=== PATIENT | male | born 1950 | race Caucasian/White ===

== ENCOUNTER 2018-02-23 13:12 | Emergency (ER) | payer OTHER ==
[~2018-02-23] VITALS: Ht 167.6 cm; Wt 45.4 kg
[~2018-02-23 13:12] MED LIST: ACET325 PO; ASPI81CH PO; ATOR40TA PO; Antacid Maximu355 ML PO; BISA10S PR; CEPH500 PO; CLOTRIMAZOLE AF1510 TOP; Enema133 M1 PR; Hair, Skin & N1 EACH PO; LEVE500 PO; LOPE2C PO; Milk Of Ma400 MG/5 M PO; OLAN10 PO; Omeprazole20 M1 PO; PROC25S PR; RISAMINE OINTM113 GM TOP
[2018-02-23] MEDS ORDERED: RISP4 PO (13:38)
[2018-02-23] MEDS ORDERED: CITA20 PO (13:38)
== END 2018-02-23 16:42 | disposition home or self-care (01) ==
LOC: ER 13:12
DX: R09.89 Other specified symptoms and signs involving the circulatory and respiratory systems (principal); Z79.82 Long term (current) use of aspirin; Z79.899 Other long term (current) drug therapy
CPT/HCPCS: 71045; 99284-25

== ENCOUNTER 2018-05-24 15:24 | Inpatient (IN) | payer OTHER ==
[~2018-05-24] VITALS: Ht 165.1 cm; Wt 74.0 kg
[~2018-05-24 15:24] MED LIST changes: -ACET325 PO; +CITA20 PO; +ONDA4ODT MM; +PAIN & FEVER500 MG PO; +RISP2 PO; +Seroquel50 MG PO
[2018-05-24] MEDS ORDERED: MELO7.5 PO (15:41)
[2018-05-24] MEDS ORDERED: LEVE500 PO (15:44)
[2018-05-24 16:18] LABS: BASOPHILS ABSOLUTE AUTO 0.03 K/mm3 (0.00-0.23); BASOPHILS PERCENT AUTO 0 % (0-2); EOSINOPHILS ABSOLUTE AUTO 0.09 K/mm3 (0.00-0.68); EOSINOPHILS PERCENT AUTO 1 % (0-6); Hematocrit 32.5 % (37.0-53.0); Hemoglobin 10.6 g/dL (13.5-17.5); IMMATURE GRAN ABSOLUTE AUTO 0.04 K/mm3 (0.00-0.10); IMMATURE GRAN PERCENT AUTO 1 % (0-1); LYMPHOCYTES ABSOLUTE AUTO 0.64 K/mm3 (0.84-5.20); LYMPHOCYTES PERCENT AUTO 8 % (21-46); MONOCYTES ABSOLUTE AUTO 0.29 K/mm3 (0.16-1.47); MONOCYTES PERCENT AUTO 4 % (4-13); Mean Corpuscular HGB 30.7 pg (26.0-34.0); Mean Corpuscular HGB Conc 32.6 g/dL (31.5-36.5); Mean Corpuscular Volume 94 fL (80-100); Mean Platelet Volume 9.3 fL (9.1-12.4); NEUTROPHILS ABSOLUTE AUTO 6.83 K/mm3 (1.96-9.15); NEUTROPHILS PERCENT AUTO 86 % (41-73); Platelet Count 230 K/mm3 (150-400); RDW Coefficient Variation 13.2 % (11.7-14.2); RDW Standard Deviation 45.2 fL (35.1-46.3); Red Blood Cell Count 3.45 M/mm3 (4.30-5.90); White Blood Cell Count 7.92 K/mm3 (4.00-11.30)
[2018-05-24 16:38] LABS: Alanine Aminotransfer (ALT/SGP 44 U/L (12-78); Albumin, Blood 3.3 g/dL (3.4-5.0); Albumin/Globulin Ratio 0.8 (0.8-1.8); Alk Phos 76 U/L (50-136); Anion Gap 8 mmol/L (6-16); Aspartate Aminotrans (AST/SGOT 39 U/L (12-37); Bilirubin, Total 0.5 mg/dL (0.1-1.0); Blood Urea Nitrogen 25 mg/dL (8-24); Bun/Creatinine Ratio 36.5 (12.0-20.0); CO2, Blood 26 mmol/L (21-32); Calcium, Blood 8.4 mg/dL (8.5-10.1); Chloride, Blood 106 mmol/L (98-108); Creatinine, Blood 0.69 mg/dL (0.60-1.20); Globulin, Blood 3.9 g/dL (2.2-4.0); Glomerular Filtration Rate >60 (60-); Glucose, Blood 89 mg/dL (70-99); Potassium, Blood 3.6 mmol/L (3.5-5.5); Sodium, Blood 140 mmol/L (136-145); Total Protein, Blood 7.2 g/dL (6.4-8.2)
[2018-05-24 16:54] LABS: Source, Urine Catheter
[2018-05-24 17:02] LABS: Bilirubin, Urine Neg (Neg); Blood, Urine 5+ (Neg); Glucose Qualitative, Urine Neg (Neg); Ketones, Urine Neg (Neg); Leukocyte Esterase, Urine 1+ (Neg); Nitrite, Urine Pos (Neg); Protein, Urine 1+ (Neg); Specific Gravity, Urine 1.015 (1.003-1.022); Urobilinogen, Urine NORM (Normal)
[2018-05-24 17:14] LABS: Appearance, Urine Cloudy (Clear); Color, Urine Yellow (P-Yellow)
[2018-05-24 17:16] LABS: Bacteria Many /hpf; Red Blood Cells, Urine 25-50 /hpf (0-2)
[2018-05-24 17:17] LABS: Squamous Epithelial Cells Not Seen /hpf (Few)
[2018-05-24 18:25] LABS: Influenza A Negative (NEGATIVE); Influenza B Negative (NEGATIVE)
[2018-05-25 04:33] LABS: BASOPHILS ABSOLUTE AUTO 0.03 K/mm3 (0.00-0.23); BASOPHILS PERCENT AUTO 0 % (0-2); EOSINOPHILS PERCENT AUTO 0 % (0-6); Hematocrit 29.3 % (37.0-53.0); Hemoglobin 9.6 g/dL (13.5-17.5); IMMATURE GRAN ABSOLUTE AUTO 0.06 K/mm3 (0.00-0.10); IMMATURE GRAN PERCENT AUTO 1 % (0-1); LYMPHOCYTES ABSOLUTE AUTO 1.22 K/mm3 (0.84-5.20); LYMPHOCYTES PERCENT AUTO 12 % (21-46); MONOCYTES ABSOLUTE AUTO 0.92 K/mm3 (0.16-1.47); MONOCYTES PERCENT AUTO 9 % (4-13); Mean Corpuscular HGB Conc 32.8 g/dL (31.5-36.5); Mean Corpuscular Volume 95 fL (80-100); NEUTROPHILS ABSOLUTE AUTO 7.68 K/mm3 (1.96-9.15); NEUTROPHILS PERCENT AUTO 78 % (41-73); Platelet Count 200 K/mm3 (150-400); RDW Coefficient Variation 13.3 % (11.7-14.2); RDW Standard Deviation 45.8 fL (35.1-46.3); White Blood Cell Count 9.91 K/mm3 (4.00-11.30)
[2018-05-25 04:55] LABS: Anion Gap 7 mmol/L (6-16); Blood Urea Nitrogen 28 mg/dL (8-24); Bun/Creatinine Ratio 35.8 (12.0-20.0); CO2, Blood 26 mmol/L (21-32); Calcium, Blood 7.7 mg/dL (8.5-10.1); Chloride, Blood 109 mmol/L (98-108); Creatinine, Blood 0.78 mg/dL (0.60-1.20); Glomerular Filtration Rate >60 (60-); Glucose, Blood 85 mg/dL (70-99); Potassium, Blood 3.9 mmol/L (3.5-5.5); Sodium, Blood 142 mmol/L (136-145)
[2018-05-26 04:48] LABS: Hematocrit 30.3 % (37.0-53.0); Hemoglobin 9.8 g/dL (13.5-17.5); Mean Corpuscular HGB 30.2 pg (26.0-34.0); Mean Corpuscular HGB Conc 32.3 g/dL (31.5-36.5); Mean Corpuscular Volume 93 fL (80-100); Mean Platelet Volume 9.7 fL (9.1-12.4); Platelet Count 188 K/mm3 (150-400); RDW Coefficient Variation 13.4 % (11.7-14.2); RDW Standard Deviation 46.2 fL (35.1-46.3); Red Blood Cell Count 3.25 M/mm3 (4.30-5.90); White Blood Cell Count 6.47 K/mm3 (4.00-11.30)
[2018-05-26 05:06] LABS: Anion Gap 7 mmol/L (6-16); Blood Urea Nitrogen 23 mg/dL (8-24); CO2, Blood 26 mmol/L (21-32); Calcium, Blood 7.9 mg/dL (8.5-10.1); Chloride, Blood 109 mmol/L (98-108); Creatinine, Blood 0.74 mg/dL (0.60-1.20); Glomerular Filtration Rate >60 (60-); Glucose, Blood 80 mg/dL (70-99); Potassium, Blood 3.4 mmol/L (3.5-5.5); Sodium, Blood 142 mmol/L (136-145)
[2018-05-26 05:12] LABS: Percent Saturation 4.8 % (20.0-50.0)
[2018-05-27 05:54] LABS: Anion Gap 9 mmol/L (6-16); Blood Urea Nitrogen 17 mg/dL (8-24); Bun/Creatinine Ratio 23.7 (12.0-20.0); CO2, Blood 26 mmol/L (21-32); Chloride, Blood 108 mmol/L (98-108); Creatinine, Blood 0.72 mg/dL (0.60-1.20); Glomerular Filtration Rate >60 (60-); Glucose, Blood 114 mg/dL (70-99); Potassium, Blood 3.6 mmol/L (3.5-5.5); Sodium, Blood 143 mmol/L (136-145)
[2018-05-28 05:28] LABS: BASOPHILS ABSOLUTE AUTO 0.02 K/mm3 (0.00-0.23); BASOPHILS PERCENT AUTO 0 % (0-2); EOSINOPHILS ABSOLUTE AUTO 0.13 K/mm3 (0.00-0.68); EOSINOPHILS PERCENT AUTO 2 % (0-6); Hematocrit 33.7 % (37.0-53.0); Hemoglobin 11.2 g/dL (13.5-17.5); IMMATURE GRAN ABSOLUTE AUTO 0.01 K/mm3 (0.00-0.10); IMMATURE GRAN PERCENT AUTO 0 % (0-1); LYMPHOCYTES ABSOLUTE AUTO 2.51 K/mm3 (0.84-5.20); LYMPHOCYTES PERCENT AUTO 47 % (21-46); MONOCYTES ABSOLUTE AUTO 0.56 K/mm3 (0.16-1.47); MONOCYTES PERCENT AUTO 10 % (4-13); Mean Corpuscular HGB 30.2 pg (26.0-34.0); Mean Corpuscular HGB Conc 33.2 g/dL (31.5-36.5); Mean Corpuscular Volume 91 fL (80-100); Mean Platelet Volume 9.6 fL (9.1-12.4); NEUTROPHILS ABSOLUTE AUTO 2.16 K/mm3 (1.96-9.15); NEUTROPHILS PERCENT AUTO 40 % (41-73); Platelet Count 244 K/mm3 (150-400); RDW Coefficient Variation 13.2 % (11.7-14.2); Red Blood Cell Count 3.71 M/mm3 (4.30-5.90); White Blood Cell Count 5.39 K/mm3 (4.00-11.30)
[2018-05-28 05:51] LABS: Anion Gap 8 mmol/L (6-16); Blood Urea Nitrogen 13 mg/dL (8-24); Bun/Creatinine Ratio 18.8 (12.0-20.0); CO2, Blood 31 mmol/L (21-32); Calcium, Blood 8.6 mg/dL (8.5-10.1); Chloride, Blood 104 mmol/L (98-108); Creatinine, Blood 0.69 mg/dL (0.60-1.20); Glomerular Filtration Rate >60 (60-); Glucose, Blood 111 mg/dL (70-99); Potassium, Blood 3.6 mmol/L (3.5-5.5); Sodium, Blood 143 mmol/L (136-145)
[2018-05-29] MEDS ORDERED: Acidophilus La100 GM PO (14:24)
[2018-05-29] MEDS ORDERED: CEPH500 PO (14:25)
== END 2018-05-29 16:22 | disposition home or self-care (01) | DRG 871 ==
LOC: ER 15:24 → MEDS 17:53
PROVIDERS: Emergency Medicine; Internal Medicine; Physician Assistant
DX: A41.9 Sepsis, unspecified organism (principal); G92 Toxic encephalopathy; R53.2 Functional quadriplegia; N39.0 Urinary tract infection, site not specified; E87.6 Hypokalemia; G40.909 Epilepsy, unspecified, not intractable, without status epilepticus; D64.9 Anemia, unspecified; R09.02 Hypoxemia; F03.90 Unspecified dementia, unspecified severity, without behavioral disturbance, psychotic disturbance, mood disturbance, and anxiety; Z79.1 Long term (current) use of non-steroidal anti-inflammatories (NSAID); Z79.82 Long term (current) use of aspirin; Z79.899 Other long term (current) drug therapy; Z87.820 Personal history of traumatic brain injury
CPT/HCPCS: 36415; 51702; 71046; 80048; 80053; 81001; 82728; 83540; 83550; 83605; 85025; 85027; 87040; 87077; 87086; 87186; 87804; 96361; 96365; 99285-25; J0696; J1650; J7030

== ENCOUNTER 2018-07-05 07:57 | Emergency (ER) | payer OTHER ==
[~2018-07-05] VITALS: Ht 165.1 cm; Wt 65.8 kg
[~2018-07-05 07:57] MED LIST changes: +Acidophilus La100 GM PO; +MELO7.5 PO
[2018-07-05] MEDS ORDERED: TRAZ50 PO (08:04)
[2018-07-05] MEDS ORDERED: ATOR40TA PO (08:05)
[2018-07-05] MEDS ORDERED: MELO7.5 PO (08:05)
[2018-07-05 08:29] LABS: BASOPHILS ABSOLUTE AUTO 0.02 K/mm3 (0.00-0.23); BASOPHILS PERCENT AUTO 0 % (0-2); EOSINOPHILS ABSOLUTE AUTO 0.02 K/mm3 (0.00-0.68); EOSINOPHILS PERCENT AUTO 0 % (0-6); Hemoglobin 11.1 g/dL (13.5-17.5); IMMATURE GRAN ABSOLUTE AUTO 0.04 K/mm3 (0.00-0.10); IMMATURE GRAN PERCENT AUTO 0 % (0-1); LYMPHOCYTES ABSOLUTE AUTO 2.19 K/mm3 (0.84-5.20); LYMPHOCYTES PERCENT AUTO 19 % (21-46); MONOCYTES ABSOLUTE AUTO 0.94 K/mm3 (0.16-1.47); MONOCYTES PERCENT AUTO 8 % (4-13); Mean Corpuscular HGB 29.3 pg (26.0-34.0); Mean Corpuscular HGB Conc 31.7 g/dL (31.5-36.5); Mean Corpuscular Volume 92 fL (80-100); Mean Platelet Volume 9.5 fL (9.1-12.4); NEUTROPHILS ABSOLUTE AUTO 8.61 K/mm3 (1.96-9.15); NEUTROPHILS PERCENT AUTO 73 % (41-73); Platelet Count 283 K/mm3 (150-400); RDW Coefficient Variation 13.2 % (11.7-14.2); RDW Standard Deviation 44.4 fL (35.1-46.3); Red Blood Cell Count 3.79 M/mm3 (4.30-5.90); White Blood Cell Count 11.82 K/mm3 (4.00-11.30)
[2018-07-05 08:45] LABS: Alanine Aminotransfer (ALT/SGP 37 U/L (12-78); Albumin, Blood 3.4 g/dL (3.4-5.0); Albumin/Globulin Ratio 0.8 (0.8-1.8); Alk Phos 100 U/L (50-136); Anion Gap 6 mmol/L (6-16); Aspartate Aminotrans (AST/SGOT 32 U/L (12-37); Bilirubin, Total 0.4 mg/dL (0.1-1.0); Blood Urea Nitrogen 39 mg/dL (8-24); Bun/Creatinine Ratio 50.3 (12.0-20.0); CO2, Blood 29 mmol/L (21-32); Calcium, Blood 8.1 mg/dL (8.5-10.1); Chloride, Blood 107 mmol/L (98-108); Creatinine, Blood 0.78 mg/dL (0.60-1.20); Globulin, Blood 4.2 g/dL (2.2-4.0); Glomerular Filtration Rate >60 (60-); Glucose, Blood 104 mg/dL (70-99); Sodium, Blood 142 mmol/L (136-145); Total Protein, Blood 7.6 g/dL (6.4-8.2)
[2018-07-05 08:48] LABS: International Normalized Ratio 0.98; Prothrombin Time Results 10.4 Sec (9.7-11.5)
[2018-07-05] MEDS ORDERED: Prilosec Otc20 MG PO (09:14)
== END 2018-07-05 09:51 | disposition home or self-care (01) ==
LOC: ER 07:57
PROVIDERS: Emergency Medicine
DX: K29.70 Gastritis, unspecified, without bleeding (principal); G40.909 Epilepsy, unspecified, not intractable, without status epilepticus; F03.90 Unspecified dementia, unspecified severity, without behavioral disturbance, psychotic disturbance, mood disturbance, and anxiety; Z79.899 Other long term (current) drug therapy; Z79.82 Long term (current) use of aspirin
CPT/HCPCS: 36415; 80053; 82272; 85025; 85610; 85730; 86850; 86900; 86901; 96374; 99285-25; C9113

== ENCOUNTER 2018-08-10 13:40 | Emergency (ER) | payer OTHER ==
[~2018-08-10] VITALS: Ht 167.6 cm; Wt 56.7 kg
[~2018-08-10 13:40] MED LIST changes: +Prilosec Otc20 MG PO; +TRAZ50 PO
[2018-08-10 15:08] LABS: Source, Urine Catheter
[2018-08-10 15:21] LABS: Bilirubin, Urine Neg (Neg); Blood, Urine Neg (Neg); Glucose Qualitative, Urine Neg (Neg); Ketones, Urine 1+ (Neg); Leukocyte Esterase, Urine 1+ (Neg); Nitrite, Urine Neg (Neg); Protein, Urine 2+ (Neg); Urobilinogen, Urine 1+ (Normal)
[2018-08-10 15:35] LABS: Appearance, Urine Clear (Clear); Color, Urine Yellow (P-Yellow)
[2018-08-10 15:38] LABS: Mucus Light (0-Heavy)
[2018-08-10 15:39] LABS: Bacteria Mod /hpf
[2018-08-10 15:43] LABS: Squamous Epithelial Cells Rare /hpf (Few)
[2018-08-10] MEDS ORDERED: CEPH500 PO (15:51)
== END 2018-08-10 16:38 | disposition home or self-care (01) ==
LOC: ER 13:40
PROVIDERS: Emergency Medicine
DX: N39.0 Urinary tract infection, site not specified (principal); F03.90 Unspecified dementia, unspecified severity, without behavioral disturbance, psychotic disturbance, mood disturbance, and anxiety; S00.33XA Contusion of nose, initial encounter; W19.XXXA Unspecified fall, initial encounter
CPT/HCPCS: 51701; 81001; 87077; 87086; 87186; 99283

== ENCOUNTER 2018-09-29 21:58 | Inpatient (IN) | payer OTHER ==
[~2018-09-29] VITALS: Ht 167.6 cm; Wt 58.4 kg
[2018-09-29] MEDS ORDERED: TRAZ100 PO (22:15)
[2018-09-29] MEDS ORDERED: NITROFURANTOIN (22:16)
[2018-09-29] MEDS ORDERED: MELO7.5 PO (22:16)
[2018-09-29 22:22] LABS: BASOPHILS ABSOLUTE AUTO 0.01 K/mm3 (0.00-0.23); BASOPHILS PERCENT AUTO 0 % (0-2); EOSINOPHILS PERCENT AUTO 0 % (0-6); IMMATURE GRAN ABSOLUTE AUTO 0.12 K/mm3 (0.00-0.10); IMMATURE GRAN PERCENT AUTO 1 % (0-1); LYMPHOCYTES PERCENT AUTO 6 % (21-46); MONOCYTES ABSOLUTE AUTO 1.67 K/mm3 (0.16-1.47); MONOCYTES PERCENT AUTO 8 % (4-13); Mean Corpuscular HGB 20.8 pg (26.0-34.0); Mean Corpuscular HGB Conc 27.2 g/dL (31.5-36.5); Mean Corpuscular Volume 76 fL (80-100); Mean Platelet Volume 9.6 fL (9.1-12.4); NEUTROPHILS ABSOLUTE AUTO 17.37 K/mm3 (1.96-9.15); NEUTROPHILS PERCENT AUTO 85 % (41-73); NRBC ABSOLUTE 0.02 K/mm3 (0.00-0.02); NRBC Auto 0.1 /100 WBC (0.0-0.2); Platelet Count 461 K/mm3 (150-400); RDW Coefficient Variation 17.8 % (11.7-14.2); RDW Standard Deviation 49.6 fL (35.1-46.3); Red Blood Cell Count 1.78 M/mm3 (4.30-5.90); White Blood Cell Count 20.47 K/mm3 (4.00-11.30)
[2018-09-29 22:25] LABS: Hematocrit 13.6 % (37.0-53.0); Hemoglobin 3.7 g/dL (13.5-17.5)
[2018-09-29 22:34] LABS: Alanine Aminotransfer (ALT/SGP 28 U/L (12-78); Albumin, Blood 2.4 g/dL (3.4-5.0); Albumin/Globulin Ratio 0.7 (0.8-1.8); Alk Phos 83 U/L (50-136); Anion Gap 22 mmol/L (6-16); Aspartate Aminotrans (AST/SGOT 29 U/L (12-37); Bilirubin, Total 0.2 mg/dL (0.1-1.0); Blood Urea Nitrogen 46 mg/dL (8-24); Bun/Creatinine Ratio 43.8 (12.0-20.0); CO2, Blood 15 mmol/L (21-32); Calcium, Blood 7.5 mg/dL (8.5-10.1); Chloride, Blood 111 mmol/L (98-108); Creatinine, Blood 1.05 mg/dL (0.60-1.20); Globulin, Blood 3.6 g/dL (2.2-4.0); Glomerular Filtration Rate >60 (60-); Glucose, Blood 112 mg/dL (70-99); Potassium, Blood 3.4 mmol/L (3.5-5.5); Sodium, Blood 148 mmol/L (136-145); Troponin I 0.028 ng/mL (0.000-0.040)
[2018-09-29 22:44] LABS: pH Blood Arterial 7.21 (7.35-7.45)
[2018-09-29 22:45] LABS: PCO2 Arterial 32 mmHg (35-45); PO2 Arterial 172 mmHg (80-100)
[2018-09-29 23:25] LABS: International Normalized Ratio 1.28; Prothrombin Time Results 13.3 Sec (9.7-11.5)
--- NOTE | 2018-09-30 02:00 | NUR ---
PT ARRIVES TO ROOM ICU 4 FROM EMERGENCY ROOM AT 0115 THIS MORNING. OF NOTE: THIS RN HAD GONE TO MEET PT IN ER PRIOR TO TRANSFER. PT WAS INTUBATED. LIGHTLY SEDATED ON PROPOFOL AND OGT CONNECTED TO WALL SUCTION. AT TIME OF LEAVING EMERGENCY ROOM, PT HAD 2650 ML COFFEE GROUND LIQUID IN SUCTION. PT SLIDE TRANSFERRED FROM [facility] TO BED WITH SLIDE SHEET, AND 5 PERSON ASSIST. WILL REVIEW CHART AND PLAN OF CARE FOR THIS PT.
[2018-09-30 02:07] LABS: Source, Urine Catheter
[2018-09-30 02:09] LABS: Bilirubin, Urine Neg (Neg); Blood, Urine Neg (Neg); Glucose Qualitative, Urine Neg (Neg); Ketones, Urine 1+ (Neg); Leukocyte Esterase, Urine Neg (Neg); Nitrite, Urine Neg (Neg); Protein, Urine 2+ (Neg); Urobilinogen, Urine NORM (Normal)
[2018-09-30 02:21] LABS: Appearance, Urine Hazy (Clear); Bacteria Few /hpf; Color, Urine Yellow (P-Yellow); Red Blood Cells, Urine 0-2 /hpf (0-2); Squamous Epithelial Cells Not Seen /hpf (Few); White Blood Cells, Urine 0-2 /hpf (0-5)
[2018-09-30 02:22] LABS: Amorphous Mod (0-Heavy); Mucus Light (0-Heavy)
[2018-09-30 03:25] LABS: PCO2 Arterial 36.4 mmHg (35-45); PO2 Arterial 72.2 mmHg (80-100)
--- NOTE | 2018-09-30 03:38 | NUR ---
PAIN PT WITH INCREASED RESP RATE 23-30. HEART RATE TACHY. PT LIFTING HEAD OFF PILLOW AND OPENING EYES. NOT FOLLOWING INSTRUCTIONS. VERSED UP TO 6 MG/HR. MED WITH FENTANYL 50 MCQ
--- NOTE | 2018-09-30 04:41 | NUR ---
HAVE MEDICATED PT WITH 50 MG FENTANYL AND HAS VERSED DRIP AT 6MG/HOUR. PROPOFOL DRIP HAS BEEN STOPPED. HAS COMPLETED THIRD OF THREE UNITS PRBC'S. NO S/S TRANSFUSION REACTIONS TO NOTE. PROTONIX DRIP CONTINUES AT 8MG/HOUR. PT RECEIVED 500 ML BOLUS NORMAL SALINE. DID NOT NEED TO START LEVOPHED DRIP. BLOOD PRESSURES HAVE STABLIZED. MULTIPLE TIMES SUCTIONING ETT RETURNS SAME APPEARING CONTENT WHAT OGT SUCTIONING RETURNS. DR BOO COMES TO ROOM TO EVALUATE PT'S PROGRESS. UPDATE GIVEN. SPOKE WITH DR GOMES ON TELEPHONE TWICE TONIGHT. ORDERS RECEIVED BOTH CONVERSATIONS. UPDATE GIVEN WELL TO HIM ON PT'S PROGRESS. NO S/S ADVERSE REACTIONS TO NOTE FROM ANTIBIOTIC THERAPY. WILL CONTINUE TO MONITOR PT.
[2018-09-30] MEDS ORDERED: ATOR40TA PO (05:35)
[2018-09-30] MEDS ORDERED: MELATONIN5 M1 PO (05:43)
[2018-09-30 06:11] LABS: BASOPHILS ABSOLUTE AUTO 0.01 K/mm3 (0.00-0.23); BASOPHILS PERCENT AUTO 0 % (0-2); EOSINOPHILS PERCENT AUTO 0 % (0-6); Hematocrit 22.2 % (37.0-53.0); Hemoglobin 6.9 g/dL (13.5-17.5); IMMATURE GRAN ABSOLUTE AUTO 0.02 K/mm3 (0.00-0.10); IMMATURE GRAN PERCENT AUTO 0 % (0-1); LYMPHOCYTES ABSOLUTE AUTO 1.36 K/mm3 (0.84-5.20); LYMPHOCYTES PERCENT AUTO 12 % (21-46); MONOCYTES ABSOLUTE AUTO 0.71 K/mm3 (0.16-1.47); MONOCYTES PERCENT AUTO 6 % (4-13); Mean Corpuscular HGB 24.9 pg (26.0-34.0); Mean Corpuscular HGB Conc 31.1 g/dL (31.5-36.5); NEUTROPHILS ABSOLUTE AUTO 9.22 K/mm3 (1.96-9.15); NEUTROPHILS PERCENT AUTO 81 % (41-73); Platelet Count 251 K/mm3 (150-400); RDW Coefficient Variation 18.5 % (11.7-14.2); RDW Standard Deviation 54.1 fL (35.1-46.3); Red Blood Cell Count 2.77 M/mm3 (4.30-5.90); White Blood Cell Count 11.32 K/mm3 (4.00-11.30)
[2018-09-30 06:17] LABS: Mean Corpuscular Volume 80 fL (80-100)
[2018-09-30 06:31] LABS: Alanine Aminotransfer (ALT/SGP 27 U/L (12-78); Albumin/Globulin Ratio 0.6 (0.8-1.8); Alk Phos 51 U/L (50-136); Anion Gap 7 mmol/L (6-16); Aspartate Aminotrans (AST/SGOT 36 U/L (12-37); Bilirubin, Total 0.5 mg/dL (0.1-1.0); Blood Urea Nitrogen 44 mg/dL (8-24); Bun/Creatinine Ratio 52.8 (12.0-20.0); CO2, Blood 25 mmol/L (21-32); Calcium, Blood 6.5 mg/dL (8.5-10.1); Chloride, Blood 117 mmol/L (98-108); Creatinine, Blood 0.83 mg/dL (0.60-1.20); Globulin, Blood 3.1 g/dL (2.2-4.0); Glomerular Filtration Rate >60 (60-); Glucose, Blood 90 mg/dL (70-99); Potassium, Blood 4.1 mmol/L (3.5-5.5); Sodium, Blood 149 mmol/L (136-145); Total Protein, Blood 5.1 g/dL (6.4-8.2)
[2018-09-30 10:14] LABS: Hematocrit 25.4 % (37.0-53.0)
--- NOTE | 2018-09-30 12:24 | NUR ---
0700: CARE ASSUMED, ASSESSMENT COMPLETED. PT VENTILLATED, AC 16, VT 400, FIO2 35%, PEEP 5, SPO2 97% HR 80'S NSR, VSS. OGT TO LIWS WITH LARGE AMOUNTS OF BLACK LIQUID OUTPUT. BLACK SPUTUM FROM ETT SUCTIONING. IV'S X4 PATENT AND INFUSING, PRBC'S AT 125M/HR, VRSED 6MG/HR, PROTONIX 8MG/HR, AN NS 75ML/HR. FLEY PATENT AND RAINING. PT APPEARS COMFORTABLE AT THIS TIME, MOVES HEAD AND EXTREMS SPONTANEOUSLY. SWB IN PLACE PER ORDERS, SCDS ON. 0800: PT REPOSITIONED IN BED FOR COMFORT, ORAL CARE COMPLETED. NO CHANGES TO VENT SETTINGS. 0930: PRBC UNIT #4 COMPLETED WITHOUT S/SX TRANSFUSION REACTION. VSS, ZOSYN INFUSIG DR. CAMPA AND Leslie PONCE IN TO SEE PT. 1000: DR. OROPEZA HAS BEEN IN TO SEE PT, LABS DRAWN AT THIS TIME. PT REPOSITIONED, CATH CARE COMPLETED. VS REMAIN STABLE. 1100: DR. OROPEZA AWARE OF TROPONIN AND HGB, NO NEW ORDERS AT THIS TIME. 1210: PT REPOSITIONED, ORAL CARE COMPLETED. FIO2 DECREASED TO 30% FOR SPO2 96%, WILL CONTIUE TO MONITOR. PT AFEBRILE, VS REMAIN STABLE. KEPPRA INFUSING PER ORDERS. 1230: DR. PONCE AT [facility]. VSS, SPO2 95%.
--- NOTE | 2018-09-30 13:07 | NUR ---
09/30/18 1307 Zuleyma Badillo History, Chart, Medications and Allergies reviewed before start of procedure.MONITOR INTACT WITH CONTINUOUS PULSE OXIMETRY AND INTERMITTENT BP.3-LEAD EKG REVIEWED WITH PHYSICIAN PRIOR TO START OF PROCEDURE. PT INTIBATED ABND SEDATED ON VENT. O2 INCREASED BY RT TO 100% FOR PROCEDURE. DISCUSSED SEDATION PLAN WITH DR. YOUNG. HE REQUESTS LIGHT PROPOFOL SUPLIMENTAL SEDATION ON TOP OF VERSED GTT. (VERSED MANAGED BY PURCHASING MANAGER).
[2018-09-30 14:16] LABS: Bicarbonate Venous 24.9 mmol/L (24.0-30.0); PCO2 Venous 40.7 mmHg (38-42); PO2 Venous 47.8 mmHg (38-42); pH Blood Venous 7.41 (7.34-7.37)
[2018-09-30 14:17] LABS: Base Excess Venous 0.8 mmol/L
[2018-09-30 14:26] LABS: Hematocrit 22.6 % (37.0-53.0); Hemoglobin 7.3 g/dL (13.5-17.5); Mean Corpuscular HGB 25.9 pg (26.0-34.0); Mean Corpuscular HGB Conc 32.3 g/dL (31.5-36.5); Mean Corpuscular Volume 80 fL (80-100); Mean Platelet Volume 9.7 fL (9.1-12.4); Platelet Count 218 K/mm3 (150-400); RDW Coefficient Variation 18.7 % (11.7-14.2); RDW Standard Deviation 54.7 fL (35.1-46.3); Red Blood Cell Count 2.82 M/mm3 (4.30-5.90); White Blood Cell Count 13.26 K/mm3 (4.00-11.30)
[2018-09-30 15:07] LABS: BAND PERCENT MAN 5 % (0-8); BASOPHILS PERCENT MAN 0 % (0-2); EOSINOPHILS PERCENT MAN 0 % (0-6); LYMPHOCYTES ABSOLUTE MAN 1.98 K/mm3 (0.84-5.20); LYMPHOCYTES PERCENT MAN 15 % (21-46); METAMYELOCYTE ABSOLUTE MAN 0.26 K/mm3 (0.00-0.00); METAMYELOCYTE PERCENT MAN 2 % (0-0); MONOCYTES ABSOLUTE MAN 0.53 K/mm3 (0.16-1.47); MONOCYTES PERCENT MAN 4 % (4-13); NEUTROPHILS ABSOLUTE MAN 10.47 K/mm3 (1.96-9.15); SEG NEUTROPHILS PERCENT MAN 74 % (41-73); TOTAL CELLS COUNTED 100
[2018-09-30 17:57] LABS: Hematocrit 21.1 % (37.0-53.0); Hemoglobin 6.7 g/dL (13.5-17.5)
--- NOTE | 2018-09-30 19:06 | NUR ---
1400: PT REPOSITIOND, VSS, VENT SETTINGS AC 16, Vt 400, FIO2 30%, PEEP 5. SPO2 94-95%. LS CTA, HRR, BT HYPERACTIVE. OGT REMOVED DURING SCOPE, NOT REPLACED PER DR. PONCE. 1600: PT RECOVERED WELL FROM PROPOFOL DURING SCOPE, VSS AT THIS TIME. WILL CONTINUE TO MONITOR. PT REPOSTIONED, LS CTA, HRR, NO ABDOMINAL DISTENSION NOTED. NO GRIMACING UPON ABD PALPATION. 1800: REPEAT LABS DRAWN, BP DECREASING FROM THIS AFTERNOON BUT REMAINS STABLE. ALL VSS AT THIS TIME, PT RESTING QUIETLY, NO AGITATION OR RESTLESSNESS NOTED. VERSED CONTINUES TO INFUSE AT 6MG/HR. 1900: DR. OROPEZA NOTIFIED OF HGB AND TRENDING DECREASE IN BP, NEW ORDERS TO TRANSFUSE. REPORT TO ONCOMING RN. VENT SETTINGS REMAIN UNCHANGED.
--- NOTE | 2018-09-30 20:52 | NUR ---
CARE ASSUMED REPORT RECEIVED, CARE ASSUMED AT 1900. PT INTUBATED AND SEDATED. VITALS STABLE. SEE SHIFT ASSESSMENT. PRBC INFUSION INITIATED PER ORDERS.
--- NOTE | 2018-09-30 21:08 | NUR ---
SEDATION ADJUNCT/PAIN MANAGEMENT PT NOTED TO BE TENSE, HEAD LIFTED OFF OF PILLOW, KNEES CURLED UP TO CHEST. PT MEDICATED WITH FENTANYL. PT RELAXED SLIGHTLY BUT CONTINUES TO BE TENSE AND CURLED UP.
--- NOTE | 2018-09-30 22:15 | NUR ---
DR. OROPEZA COMMUNICATION CONTACTED BY DR. OROPEZA VIA PHONE. DR. OROPEZA REQUESTING ORDER FOR 1 UNIT PRBC IF FOLLOW UP HEMOGLOBIN IS LESS THAN 7. FOR HEMOGLOBIN 7 OR GREATER DO NOT TRANSFUSE ANOTHER UNIT, FOLLOW UP WITH NEXT SCHEDULED LAB DRAW.
[2018-09-30 23:12] LABS: Hematocrit 24.9 % (37.0-53.0)
[2018-10-01 03:28] LABS: BASOPHILS ABSOLUTE AUTO 0.02 K/mm3 (0.00-0.23); BASOPHILS PERCENT AUTO 0 % (0-2); EOSINOPHILS ABSOLUTE AUTO 0.11 K/mm3 (0.00-0.68); EOSINOPHILS PERCENT AUTO 1 % (0-6); Hematocrit 27.3 % (37.0-53.0); Hemoglobin 8.5 g/dL (13.5-17.5); IMMATURE GRAN ABSOLUTE AUTO 0.03 K/mm3 (0.00-0.10); IMMATURE GRAN PERCENT AUTO 0 % (0-1); LYMPHOCYTES ABSOLUTE AUTO 1.86 K/mm3 (0.84-5.20); LYMPHOCYTES PERCENT AUTO 19 % (21-46); MONOCYTES ABSOLUTE AUTO 0.87 K/mm3 (0.16-1.47); MONOCYTES PERCENT AUTO 9 % (4-13); Mean Corpuscular HGB 25.8 pg (26.0-34.0); Mean Corpuscular HGB Conc 31.1 g/dL (31.5-36.5); Mean Platelet Volume 9.4 fL (9.1-12.4); NEUTROPHILS ABSOLUTE AUTO 6.96 K/mm3 (1.96-9.15); NEUTROPHILS PERCENT AUTO 71 % (41-73); Platelet Count 191 K/mm3 (150-400); RDW Coefficient Variation 18.6 % (11.7-14.2); RDW Standard Deviation 56.1 fL (35.1-46.3); White Blood Cell Count 9.85 K/mm3 (4.00-11.30)
[2018-10-01 03:28] LABS: pH Blood Venous 7.34 (7.34-7.37)
[2018-10-01 03:29] LABS: Base Excess Venous 0.6 mmol/L; Bicarbonate Venous 24.4 mmol/L (24.0-30.0); PCO2 Venous 49.4 mmHg (38-42); PO2 Venous 42.9 mmHg (38-42)
[2018-10-01 03:32] LABS: Mean Corpuscular Volume 83 fL (80-100)
[2018-10-01 03:48] LABS: Alanine Aminotransfer (ALT/SGP 39 U/L (12-78); Albumin/Globulin Ratio 0.6 (0.8-1.8); Alk Phos 39 U/L (50-136); Anion Gap 2 mmol/L (6-16); Aspartate Aminotrans (AST/SGOT 61 U/L (12-37); Bilirubin, Total 0.5 mg/dL (0.1-1.0); Blood Urea Nitrogen 32 mg/dL (8-24); Bun/Creatinine Ratio 42.5 (12.0-20.0); CO2, Blood 29 mmol/L (21-32); Calcium, Blood 7.3 mg/dL (8.5-10.1); Chloride, Blood 119 mmol/L (98-108); Creatinine, Blood 0.75 mg/dL (0.60-1.20); Globulin, Blood 3.2 g/dL (2.2-4.0); Glomerular Filtration Rate >60 (60-); Glucose, Blood 81 mg/dL (70-99); Phosphorus, Blood 2.2 mg/dL (2.5-4.9); Potassium, Blood 3.7 mmol/L (3.5-5.5); Sodium, Blood 150 mmol/L (136-145); Total Protein, Blood 5.2 g/dL (6.4-8.2); Vancomycin, Trough 8.3 ug/mL (5.0-10.0)
[2018-10-01 05:20] LABS: Hematocrit 24.6 % (37.0-53.0); Hemoglobin 7.7 g/dL (13.5-17.5)
--- NOTE | 2018-10-01 05:29 | NUR ---
SEDATIION TITRATION/NEURO STATUS ATTEMPTED TO TITRATE PATIENT OFF OF SEDATION TO ASSESS UNDERLYING NEURO STATUS. PT TITRATED VERSED TO 3 MG/HR AT WHICH POINT PT WAS MOVING ALL EXTREMITIES SPONTANEOUSLY, COUGHING MODERATE AMOUNTS IN RESPONSE TO ETT, AND PUPILS INCREASED IN SIZE TO 4 CM AND BRISK. HOWEVER, PT NOT FOLLOWING COMMANDS. PT LEFT AT 3 MG/HR IN ORDER TO TOLERATE ETT.
--- NOTE | 2018-10-01 05:36 | NUR ---
SUMMARY VITALS STABLE THROUGHOUT NIGHT. VENT SETTINGS UNCHANGED. ATTEMPTED SEDATION TITRATION TO ASSESS UNDERLYING NEURO STATUS THIS MORNING, SEE PREVIOUS NOTE. PT HAS REMAINED RESTRAINED THROUGHOUT NIGHT TO PROTECT LINES/TUBES PT DOES REACH FOR ETT WITH REPOSITIONING. HEMOGLOBIN REMAINS ABOVE 7, NO FURTHER UNITS TRANSFUSED. NO SIGNS OF ACTIVE BLEEDING. SMALL AMOUNTS OF DARK BROWN SUBSTANCE SUCTIONED FROM ETT DURING ORAL CARE. NO BOWEL MOVEMENT. NEURO STATUS UNCHANGED. PT DOES NOT FOLLOW COMMANDS BUT WITHDRAWS TO PAIN AND MOVES EXTREMITIES SPONTANEOUSLY.
--- NOTE | 2018-10-01 07:06 | NUR ---
REPORT TO PHUONG VALLE TO ASSUME CARE
--- NOTE | 2018-10-01 08:28 | NUR ---
0700: CARE ASSUMED, ASSESSMENT COMPLETED. PT RESTING QUIETLY IN BED WITH NO S/SX AGITATION. VENT SETTINGS AC 16, Vt 400, FIO2 30%, PEEP 5, SPO2 99%, PT'S RR 16/MIN, HR 50'S - 60'S NSR, BP STABLE. VERSED 3MG/HR, PROTONIX 8MG/HR, LR 75ML/HR. SCDS ON, EGAN PATENT AND DRAINING TO GRAVITY. PT AFEBRILE, MOVING ALL EXTREMS SPONTANEOUSLY, DOES NOT OPEN EYES. 0820: LR DC'D, D5W 100ML/HR INFUSING PER ORDERS. VS REMAIN STABLE, PT REPOSITIONED, NO CHANGES NOTED.
--- NOTE | 2018-10-01 10:00 | NUR ---
0950: DR. CASTRO AT BEDSIDE TO ASSESS. PT RESTING QUIETLY WITH NO AGITATION OR RESTLESSNESS, PT DOES NOT OPEN EYES, TRACK MOVEMENTS OR FOLLOW COMMANDS. VERSED OFF AT THIS TIME PER DR. CASTRO, WILL CONTINUE TO MONITOR.
[2018-10-01 11:01] LABS: Hemoglobin 7.9 g/dL (13.5-17.5)
--- NOTE | 2018-10-01 15:54 | NUR ---
1200: PT CONTINUES TO MOVE EXTREMS SPONTANEOUSLY, BUT NO TO COMMAND. PT DOES NOT OPEN EYES OR TRACK MOVEMENTS, WITHDRAWS TO PAIN. VSS, VENT SETTINGS UNCHANGED. 1400: PT HAS BEEN OFF OF VERSED X4 HOURS, NO CHANGES IN NEURO STATUS NOTED. VSS, PT REPOSITIONED, NO RESTLESSNESS OR AGITATION NOTED.
--- NOTE | 2018-10-01 16:12 | NUR ---
Mr. Dawn was alone in room and on vent. No family/friend present. Prayer provided at bedside.
--- NOTE | 2018-10-01 16:46 | NUR ---
1600: PT REPOSITIONED, CONTINUES TO MOVE EXTREMETIES SPONTANEOUSLY, DOES NOT FOLLOW COMMANDS OR TRACK MOVEMENTS, DOES NOT OPEN EYES. 1630: DR CASTRO UPDATED ON PT'S STATUS, NO NEW ORDERS AT THIS TIME. PT STATUS AND VENT SETTINGS UNCHANGED. VSS.
--- NOTE | 2018-10-01 18:10 | NUR ---
1809: LABS DRAWN, PT REPOSITIONED, CONTINUES TO MOVE EXTREMETIES BUT NOT TO COMMAND, NO EYE OPENING, NO TRACKING. VSS, VENT SETTINGS AC 16, Vt 400, FIO2 30%, PEEP 5. SPO2 93%, PT'S RR 17, FIO2 INCREASED TO 35% AT THIS TIME. HR 75 SINUS, PT RESTING QUIETLY IN BED WITH NO AGITATION/RESTLESSNESS/GRIMACING NOTED. BT REMAIN ACTIVE, ABD MILDLY DISTENDED, SLIGHTLY FIRM. SWB REMAIN IN PLACE, SKIN INTACT. VERSED REMAINS OFF. NO STOOLS OR EMESIS THIS SHIFT, HGB HAS REMAINED STABLE T/O DAY. WILL CONTINUE TO MONITOR.
[2018-10-01 18:19] LABS: Hematocrit 25.7 % (37.0-53.0)
--- NOTE | 2018-10-01 19:11 | NUR ---
PT RESTING IN BED, NO AGITATION NOTED. VSS, VENT SETTINGS AC 16, Vt 400, FIO2 35%, PEEP 5, SPO2 96%, RR 18/MIN. PT REMAINS MINIMALLY RESPONSIVE, NO CHANGES NOTED. REPORT TO ONCOMING SHIFT.
--- NOTE | 2018-10-01 19:18 | NUR ---
ASSUMED CARE PT REMAINS INTUBATED ON VENT AC16/400/5/35%. CURRENT GTTP: D5W AT 100ML/HR, WITH PROTONIX AND ZOSYN INFUSING. PT IS CALM AND MAKING NO PURPOSEFUL MOVEMENTS AT THIS TIME.
[2018-10-02 03:36] LABS: BASOPHILS ABSOLUTE AUTO 0.02 K/mm3 (0.00-0.23); BASOPHILS PERCENT AUTO 0 % (0-2); EOSINOPHILS ABSOLUTE AUTO 0.15 K/mm3 (0.00-0.68); EOSINOPHILS PERCENT AUTO 2 % (0-6); Hematocrit 23.6 % (37.0-53.0); Hemoglobin 7.5 g/dL (13.5-17.5); IMMATURE GRAN ABSOLUTE AUTO 0.04 K/mm3 (0.00-0.10); IMMATURE GRAN PERCENT AUTO 1 % (0-1); LYMPHOCYTES ABSOLUTE AUTO 0.76 K/mm3 (0.84-5.20); LYMPHOCYTES PERCENT AUTO 10 % (21-46); MONOCYTES ABSOLUTE AUTO 0.65 K/mm3 (0.16-1.47); MONOCYTES PERCENT AUTO 8 % (4-13); Mean Corpuscular HGB 25.9 pg (26.0-34.0); Mean Corpuscular HGB Conc 31.8 g/dL (31.5-36.5); Mean Corpuscular Volume 81 fL (80-100); Mean Platelet Volume 9.8 fL (9.1-12.4); NEUTROPHILS ABSOLUTE AUTO 6.23 K/mm3 (1.96-9.15); NEUTROPHILS PERCENT AUTO 79 % (41-73); Platelet Count 173 K/mm3 (150-400); White Blood Cell Count 7.85 K/mm3 (4.00-11.30)
[2018-10-02 03:54] LABS: Anion Gap 4 mmol/L (6-16); Blood Urea Nitrogen 17 mg/dL (8-24); Bun/Creatinine Ratio 27.2 (12.0-20.0); CO2, Blood 27 mmol/L (21-32); Chloride, Blood 113 mmol/L (98-108); Creatinine, Blood 0.63 mg/dL (0.60-1.20); Glomerular Filtration Rate >60 (60-); Glucose, Blood 107 mg/dL (70-99); Sodium, Blood 144 mmol/L (136-145)
--- NOTE | 2018-10-02 04:20 | NUR ---
SBT PT HAS BEEN OFF SEDATION SINCE 1000 YESTERDAY. SBT INITIATED W/ PS 7/5 FIO2 OF 45%. PT TOLERATED WELL WITH VT'S IN THE 350-400 RANGE, MAINTAINED O2 SATS AND RR ADEQUATE. HAD INITALLY PLANNED TO LEAVE ON PS SETTING, BUT TOWARD END OF SBT PT'S RR BEGAN TO DROP AND DECISION MADE TO RETURN TO PREVIOUS VENT SETTINGS.
[2018-10-02 05:02] LABS: PCO2 Arterial 37.4 mmHg (35-45); PO2 Arterial 79.3 mmHg (80-100); pH Blood Arterial 7.46 (7.35-7.45)
--- NOTE | 2018-10-02 06:23 | NUR ---
SHIFT SUMMARY PT REMAINS INTUBATED ON VENT AC16/400/5/30%. D5W INFUSING AT 100ML/HR. PT IS ON NO SEDATION AND ONLY RESPONDS TO PAIN, AND LOCALIZES. PUPILS ARE 5/5 AND EQUAL/BRISK. ONLY SIGNIFICANT THING TO HAPPEN OVERNIGHT CONSISTED OF A FEW EPISODES OF COUGHING - PRODUCING CLEAR/FOX THIN SECRETIONS AND DESATTING TO MID/HIGH 80s. 2MIN OF 100%O2 + REPOSITIONING AND SATS SLOWLY IMPROVED TO MID 90s. DR. BOO UPDATED ON AM LABS, CURRENTLY AWAITING KCl FROM PHARMACY.
--- NOTE | 2018-10-02 11:06 | NUR ---
0730: CARE ASSUMED, ASSESSMENT COMPLETED. PT RESTING IN BED, OPENS EYES SPONTANEOUSLY TO SOUND, DOES NOT FOLLOW DIRECTIONS OR TRACK MOVEMENTS. VENT SETTINGS AC16, Vt400, PEEP 5, FIO2 35%. SPO2 HIGH 90'S, RR 17-20, Vt 420'S. 0800: ORAL CARE AND CATH CARE COMPLETED, PT REPOSITIONED, NO CHANGES NOTED. 1000: PT REPOSITIONED, BECOMING MORE ALERT, OPENING EYES AND TRACKING MOVEMENTS, DOES NOT FOLLOW COMMANDS. VSS, SPO2 LOW 90'S, VENT SETTINGS UNCHANGED. 1100: PT BECAME AGITATED, WAS COUGHING AND PULLING AT RESTRAINTS, MEDICATED WITH FENTANUYL WITHOUT GOOD RESULTS, PROPOFOL INFUSION INITIATED. DR. CASTRO IN TO ASSESS, AWARE OF PT'S NEURO STATUS AND MEDICATIONS, NEW ORDERS RECEIVED. PROPOFOL AT 9MCG/KG/MIN AT THIS TIME, PT RESTING QUIETLY AND CALMLY, EASILY ROUSABLE, CONTINUES TO TRACK MOVEMENTS WITH EYES. VSS, SPO2 99%, HR 73 SUNIS, RR 20, Vt 450'S.
[2018-10-02 13:47] LABS: Hematocrit 24.3 % (37.0-53.0); Hemoglobin 7.5 g/dL (13.5-17.5)
--- NOTE | 2018-10-02 16:19 | NUR ---
1200: PT BECAME AGITATED AND RESTLESS AGAIN, PROPOFOL INCREASED TO 15MCG/KG/MIN BY PHUONG SIMS. PT NOW RESTING QUIETLY, NO AGITATION NOTED. VENT SETTINGS UNCHANGED, SPO2 HIGH 90'S, RR 18, Vt 400-500. HINA, NO TRACKING OR PURPOSEFUL MOVEMENT AT THIS TIME. 1330: FIO2 DECREASED BY RT TO 30%, SPO2 94% AT THIS TIME, OTHER VENT SETTINGS UNCHANGED. OGT PLACED AT THIS TIME PER ORDERS, PLACEMENT CONFIRMED WITH AUSCULTATION AND ASPIRATION. 1400: HIGH VITAL PROTEIN TUBE FEEDING INFUSING PER OGT AT 25ML/HR PER ORDERS AT THIS TIME, PT WILL RECEIVE 30ML FLUSHES OF WATER Q4H. WILL MONITOR RESIDUALS PER ORDERS. PT RESTING QUIETLY, REPOSITIONED IN BED. 1600: PT REPOSITIONED, ORAL CARE COMLETED. VSS, VENT SETTINGS UNCHANGED. Vt HIGH 400'S, RR 17, SPO2 94%. PROPOFOL REMAINS AT 15MCG/KG/MIN, NO TRACKING OR FOLLOWING OF COMMANDS.
[2018-10-02 18:14] LABS: Hematocrit 25.3 % (37.0-53.0); Hemoglobin 7.7 g/dL (13.5-17.5)
--- NOTE | 2018-10-02 18:56 | NUR ---
1830: PT REPOITIONED IN BED, BECAME AGITATED, PULLING AT RESTRAINTS. PROPOFOL INCREASED TO 20MCG/KG/MIN AT THIS TIME. ETT SUCTIONED, SPUTUM IS BELLA. 1849: PT RESTING, COUGHING OCCASIONALLY. SPO2 DESAT TO 87, ETT SUCTIONED, SPO2 DID NOT RECOVER. FIO2 INCREASED AT THIS TIME TO 35%. SPO2 NOW 94%. PT CALM AT THIS TIME STILL ROUSABLE, MOVING ALL EXTREMS AND OPENING EYES UPON PHYSICAL STIMULUS. VENT SETTINGS AC16/400/5/35%. REPORT TO ONCOMING NURSE.
--- NOTE | 2018-10-02 19:32 | NUR ---
ASSUMED CARE OF PT AT 1915. REPORT RECEIVED AT BEDSIDE. PT PRESENTS IN BED - VENTED. AC 16, Tv 400, FIO2 35&, PEEP 5. SETTINGS AND DRIPS VERIFIED WITH OFFGOING RN. WILL REVIEW CHART AND PLAN OF CARE FOR THIS PT.
--- NOTE | 2018-10-02 23:15 | NUR ---
PT HAS FULL BEDBATH DONE. PT TOLERATES THIS FAIR. HAS HAD COPIOUS ORAL SECRETIONS. FREQUENT ORAL CARE DONE. PT CONTINUES ON PROPOFOL DRIP AT 30 MCG/KG/MIN PT TOLERATING VENT WELL. WILL CONTINUE TO MONITOR PT.
--- NOTE | 2018-10-03 03:30 | NUR ---
CONTINUING WITH Q 2 HOUR TURNS IN BED TO PROTECT SKIN INTEGRETY. PT HAS CREAM COLORED SECRETION FROM ETT. HAVE DC'D IV FIELD START FROM LEFT AC. THIS SITE WAS LEAKING. REMOVED WITH CATHETER TIP INTACT. PT'S VSS. WILL CONTINUE TO MONITOR.
[2018-10-03 06:28] LABS: PCO2 Arterial 41.8 mmHg (35-45); PO2 Arterial 64.3 mmHg (80-100); pH Blood Arterial 7.43 (7.35-7.45)
--- NOTE | 2018-10-03 06:30 | NUR ---
PT HAS WEAN TRIAL THIS AM, AND IS VERY ANXIOUS THROUGHOUT. WOULD CHEW ON ETT AND WOULD NEED TO BE REMINDED NOT TO DO SO. PT CURRENTLY BACK TO AC SETTINGS BEFORE. PROPOFOL AT 30 MCG/KG/MIN. HAS HAD COPIOUS ORAL SECRETIONS THIS NIGHT. ADEQUATE URINE OUTPUT. NO S/S BLEEDING TO NOTE. WILL CONTINUE TO MONITOR PT, AND WILL REPORT OFF TO ONCOMING RN.
[2018-10-03 06:57] LABS: Hematocrit 27.7 % (37.0-53.0); Hemoglobin 8.3 g/dL (13.5-17.5); Mean Corpuscular HGB 25.2 pg (26.0-34.0); Mean Platelet Volume 9.8 fL (9.1-12.4); Platelet Count 211 K/mm3 (150-400); RDW Coefficient Variation 19.2 % (11.7-14.2); RDW Standard Deviation 59.3 fL (35.1-46.3); Red Blood Cell Count 3.29 M/mm3 (4.30-5.90); White Blood Cell Count 6.57 K/mm3 (4.00-11.30)
[2018-10-03 07:08] LABS: Mean Corpuscular Volume 84 fL (80-100)
[2018-10-03 07:11] LABS: Anion Gap 3 mmol/L (6-16); Blood Urea Nitrogen 10 mg/dL (8-24); Bun/Creatinine Ratio 14.6 (12.0-20.0); CO2, Blood 30 mmol/L (21-32); Calcium, Blood 7.3 mg/dL (8.5-10.1); Chloride, Blood 113 mmol/L (98-108); Creatinine, Blood 0.68 mg/dL (0.60-1.20); Glomerular Filtration Rate >60 (60-); Glucose, Blood 95 mg/dL (70-99); Hematocrit 27.7 % (37.0-53.0); Hemoglobin 8.3 g/dL (13.5-17.5); Magnesium, Blood 2.1 mg/dL (1.6-2.4); Sodium, Blood 146 mmol/L (136-145)
--- NOTE | 2018-10-03 07:30 | NUR ---
Recieved report from Moisés BACA. Patient is sedated and intubated. He has 7.5 ET and is 24 at lips. Vent settings are AC 16, TV 400, FiO2 40% and PEEP 5.0 and sats 96%. He has OG in place and is infusing Vital HP at 25ml/hr and advanced to 35 towards gaol of 45ml and 30ml water flush q4. He has silva 16Fr. Draining to gravity light dejuan colored urine.He is in bilateral soft wrist upper extremities and removed to check skin and cirrculation. He has many IV see assessment in EHR all dressing intact anmd sites WNL's. He has Propofol at 30mcg/kg/min and D5 at 50ml/hr. He has bilateral SCD's in place.
--- NOTE | 2018-10-03 09:30 | NUR ---
No vent setting changes or gtt changes. Repositioned patient. Oral care and partial bath done earlier. Dr Wiseman stated OG needs to be repositioned deeper approx 10-15cm. VSS.
--- NOTE | 2018-10-03 11:30 | NUR ---
ET ballon cuff line cur when removing tape and ET was replaced by Dr Wiseman same size and position. OG advanced 15cm and still have sounds in stomach with air expressed through tube. All gtt conbtinue at same rate and no vent setting changes. Potassium and ABX infusing.
--- NOTE | 2018-10-03 13:30 | NUR ---
Patient continues to have less than 10ml residual that reinfused with increase TF rate to 35ml/hr. Repositioned patient. No other changes with patient. VSS see EHR.
--- NOTE | 2018-10-03 15:31 | NUR ---
Patient getting CPT and repositioned prior to start. He comntinues to be sedated on 30mcg/kg/min Propofol, No vent setting changes and sats upper 90%. removed restraints and checked skin and circulation and reapplied restraints. No change swith fluids.
[2018-10-03 18:01] LABS: Hematocrit 27.1 % (37.0-53.0); Hemoglobin 8.3 g/dL (13.5-17.5)
--- NOTE | 2018-10-03 18:26 | NUR ---
Patient reposited after oral and cath care. Vent setting after FiO2 change is AC 16, TV 400, FiO2 35% and Peep 5.0 sats upper 90%. Propofol remains at 30mcg/kg/min abd D5 at 50 ml/hr and [place] running at 12.5ml/hr. [facility] to be called if any new acute changes. I&O's done, silva 950ml outyellow/green in color. Moderate oral secretions and minimal ET secretions.
--- NOTE | 2018-10-03 20:00 | NUR ---
ASSUMED CARE OF PT AT 1915. REPORT RECEIVED AT BEDSIDE. PT PRESENTS IN BED. VENTED. SETTINGS CHECKED AND VERIFIED. PT SEDATED WITH PROPOFOL AT 30 MCG/KG/MIN. PT IN NO APPARENT DISTRESS. HAS COPIOUS ORAL SECRETIONS. DRIPS AND VENT VERIFIED WITH OFFGOING RN. WILL REVIEW CHART AND PLAN OF CARE FOR THIS PT.
--- NOTE | 2018-10-03 23:32 | NUR ---
FULL BEDBATH DONE FOR THIS PT. HE TOLERATES WELL. CONTINUES ON TUBE FEEDING AT GOAL. RESIDUAL CHECK LESS THAN 10 ML. THIS REINFUSED. PT TOLERATING Q 2 HOUR TURNS IN BED. WILL CONTINUE TO MONITOR PT.
--- NOTE | 2018-10-04 02:00 | NUR ---
PT CONTINUES TO TOLERATE VENT WELL WITH PROPOFOL AT 30 MCG/KG/MIN. OCCASSIONAL REQUIRES SUCTIONING OF ETT WITH RETURN OF LIGHT BLANDON COLORED SECRETIONS. PT HAS MAINTAINED > 90 PERCENT SATURATIONS WITH CURRENT VENT SETTINGS. WILL CONTINUE TO MONITOR PT.
[2018-10-04 03:50] LABS: BASOPHILS ABSOLUTE AUTO 0.03 K/mm3 (0.00-0.23); BASOPHILS PERCENT AUTO 1 % (0-2); EOSINOPHILS PERCENT AUTO 3 % (0-6); Hematocrit 26.1 % (37.0-53.0); Hemoglobin 7.9 g/dL (13.5-17.5); IMMATURE GRAN ABSOLUTE AUTO 0.02 K/mm3 (0.00-0.10); IMMATURE GRAN PERCENT AUTO 0 % (0-1); LYMPHOCYTES ABSOLUTE AUTO 1.67 K/mm3 (0.84-5.20); LYMPHOCYTES PERCENT AUTO 26 % (21-46); MONOCYTES ABSOLUTE AUTO 0.63 K/mm3 (0.16-1.47); MONOCYTES PERCENT AUTO 10 % (4-13); Mean Corpuscular HGB 24.6 pg (26.0-34.0); Mean Corpuscular HGB Conc 30.3 g/dL (31.5-36.5); NEUTROPHILS ABSOLUTE AUTO 3.77 K/mm3 (1.96-9.15); NEUTROPHILS PERCENT AUTO 60 % (41-73); RDW Coefficient Variation 19.1 % (11.7-14.2); RDW Standard Deviation 56.6 fL (35.1-46.3); Red Blood Cell Count 3.21 M/mm3 (4.30-5.90); White Blood Cell Count 6.32 K/mm3 (4.00-11.30)
[2018-10-04 03:54] LABS: Mean Corpuscular Volume 81 fL (80-100); Mean Platelet Volume 10.2 fL (9.1-12.4); Platelet Count 152 K/mm3 (150-400)
[2018-10-04 04:04] LABS: Alanine Aminotransfer (ALT/SGP 34 U/L (12-78); Albumin, Blood 1.7 g/dL (3.4-5.0); Albumin/Globulin Ratio 0.5 (0.8-1.8); Alk Phos 45 U/L (50-136); Anion Gap 4 mmol/L (6-16); Aspartate Aminotrans (AST/SGOT 31 U/L (12-37); Bilirubin, Total 0.2 mg/dL (0.1-1.0); Blood Urea Nitrogen 10 mg/dL (8-24); Bun/Creatinine Ratio 17.7 (12.0-20.0); CO2, Blood 28 mmol/L (21-32); Calcium, Blood 6.9 mg/dL (8.5-10.1); Chloride, Blood 114 mmol/L (98-108); Creatinine, Blood 0.57 mg/dL (0.60-1.20); Globulin, Blood 3.4 g/dL (2.2-4.0); Glomerular Filtration Rate >60 (60-); Glucose, Blood 117 mg/dL (70-99); Potassium, Blood 3.4 mmol/L (3.5-5.5); Sodium, Blood 146 mmol/L (136-145); Total Protein, Blood 5.1 g/dL (6.4-8.2)
[2018-10-04 04:28] LABS: PCO2 Arterial 38.1 mmHg (35-45); PO2 Arterial 79.6 mmHg (80-100); pH Blood Arterial 7.49 (7.35-7.45)
--- NOTE | 2018-10-04 06:30 | NUR ---
PT GOES THROUGH WEAN TRIAL THIS AM AND IS ABLE TO DO BETTER OFF SEDATION AND ON PRESSURE SUPPORT. PT CURRENTLY BACK TO AC SETTING BEFORE. ELECTROLYTE PROTOCOL USED FOR LOW POTASSIUM THIS AM. PT HAS Q.S URINE OUTPUT THROUGH THE NIGHT. MINIMAL RESIDUALS FROM OGT. HAS TOLERATED Q 2 HOUR TURNS. HAS HAD A LOT OF ORAL SECRETIONS THIS SHIFT WHICH CLEARS WITH YAUNKEUR. WILL CONTINUE TO MONITOR PT, AND WILL REPORT OFF TO ONCOMING RN.
--- NOTE | 2018-10-04 07:34 | NUR ---
Recieved report johanna Curiel RN. Patient was supine in bed with HOB at 30 degrees and repositioned him to right side. He is intubated and sedated. He has 7.5 ET and 24 at lips. His vent settings are AC 16, TV 400, FiO2 35% and just turned down to 30% by RT and PEEP 5.0 and sats are 96%. He has two IV's in each arm see EHR and dressings intact and sites WNL's. He has Propofol at 30mcg/kg/min and D5 at 50ml/hr and potassium rider x2. He is in bilateral soft wrist restraints and released and checked skin and circulation and re-applied. He has 16 Fr Dickson draining to gravity yellow/green urine, no stool this am. He has bilateral SCD's in place. Suctioned modeerat oral secretions and small amount of ET secretion thin white.
--- NOTE | 2018-10-04 07:58 | NUR ---
Recieved report from Kyle BACA. Patient sitting in bed with legs crossed and HOB at 30 degrees. He is non verbal and is in bilateral soft wrist restraints to protect lines and tubes. Released restraints breaiflt to check skin and cirrculation and re-applied. He has copius amounts of secretions he coughs up creamy white and needs constant oral and deep suctioning. He has some upper extremity contractions. He is on 3L O2 via NC and sats low to mid 90%. RT in room now deep suctioning. He has feeding tube left abdomen and is infusing Jevity 1.2 at 45ml/hr with 30ml water flush Q4. He has condom cath in place and attends inplace and is incontinent to stool and urine, no BM in last two days.
--- NOTE | 2018-10-04 09:46 | NUR ---
Dr Catalan in room and placed on spon. with PS 5, FiO2 30% and sats 94%, TF stopped and D5 stopped per order and propofol on hold to possibly extubate. Repositioned and suctioned copius amounts of oral secretions.
--- NOTE | 2018-10-04 10:29 | NUR ---
Patient extubated and placed on 4L O2 via NC and has copius amounts of oral secretions being suctioned. CPT in process.
--- NOTE | 2018-10-04 12:10 | NUR ---
Patient had extra large dark starr stool, gave bath and changed linen
--- NOTE | 2018-10-04 13:38 | NUR ---
Patient laying in bed resting. He has continued productive cough and very little gag reflex when suctioning, he swallows it sometimes. MAEW. He is non verbal, but tracks to verbal stimuli and occassionally follows directions. VSS
--- NOTE | 2018-10-04 17:23 | NUR ---
No significant changes with patient. He remains on 4L O2 via NC and when gets backed up with oral secretions he drops to 90%'s. He moves around in bed and needs repositions frequently. He remains non verbal or makes any sounds. He continues to be out of restraints..
--- NOTE | 2018-10-04 17:30 | NUR ---
ASSUMED CARE REPORT FROM PHUONG JUAREZ. NONVERBAL PATIENT.
--- NOTE | 2018-10-04 18:27 | NUR ---
CALLED DR. OROPEZA RE: INPATIENT STATUS NOW THAT THE PATIENT IS EXTUBATED AND DNR. HE IS TO REMAIN IN THE ICU TONIGHT AND TRANSFER WILL BE DISCUSSED TOMORROW.
--- NOTE | 2018-10-04 18:59 | NUR ---
PATIENT DOZING WITH TV ON. REPORT GIVEN TO PHUONG SANCHES.
--- NOTE | 2018-10-04 22:14 | NUR ---
ASSUMING CARE RECEIVED PT REPORT FROM PHUONG MONTALVO. PT WAS EXTUBATED ON DAY SHIFT PER REPORT. PT IS NON-VERBAL AT THIS TIME AND IS NOT FOLLOWING COMMANDS, BUT IS RESPONSIVE TO VERBAL STIMULI. PT IS SALINE LOCKED AT THIS TIME AND IS NOT RECEIVING ANY IV FLUIDS. PT IS RECEIVING OCCASIONAL IV ANTIBIOTICS AND KEPPRA. PT IS ON 4L O2 VIA NC. PT SPO2 IS IN THE MID 90'S. LUNG SOUNDS ARE CLEAR THROUGHOUT. PT IS REPOSITIONING SELF TO THE RIGHT SIDE FREQUENTLY. WILL CONTINUE TO REPOSITION PATINET. PT HAS A EGAN CATH IN PLACE AT THIS TIME, CURRENTLY PATENT AND DRAINING TO GRAVITY. PT HR IS MAINTAINING IN THE 80'S. BP IS STABLE AT THIS TIME. ASSUMING CARE OF PT AT THE TIME OF SHIFT REPORT. WILL CONTINUE TO MONITOR PT.
--- NOTE | 2018-10-05 02:09 | NUR ---
REPORT AND TRANSFER. PT REPORT GIVEN TO PHUONG SNOWDEN TO ASSUME CARE. PT REMAINS NONVERBAL. PT VITALS HAVE REMAINED STABLE THUS FAR THROUGH THE SHIFT. PT CONTINUES TO BE SALINE LOCKED. PT TRANSFERED TO ICU ROOM 16 AT APPROX 0210.
[2018-10-05 03:27] LABS: BASOPHILS ABSOLUTE AUTO 0.04 K/mm3 (0.00-0.23); BASOPHILS PERCENT AUTO 1 % (0-2); EOSINOPHILS ABSOLUTE AUTO 0.08 K/mm3 (0.00-0.68); EOSINOPHILS PERCENT AUTO 1 % (0-6); Hemoglobin 7.8 g/dL (13.5-17.5); IMMATURE GRAN ABSOLUTE AUTO 0.02 K/mm3 (0.00-0.10); IMMATURE GRAN PERCENT AUTO 0 % (0-1); LYMPHOCYTES ABSOLUTE AUTO 2.01 K/mm3 (0.84-5.20); LYMPHOCYTES PERCENT AUTO 24 % (21-46); MONOCYTES PERCENT AUTO 8 % (4-13); Mean Corpuscular HGB 24.8 pg (26.0-34.0); Mean Corpuscular Volume 83 fL (80-100); Mean Platelet Volume 10.3 fL (9.1-12.4); NEUTROPHILS ABSOLUTE AUTO 5.68 K/mm3 (1.96-9.15); NEUTROPHILS PERCENT AUTO 67 % (41-73); Platelet Count 242 K/mm3 (150-400); RDW Coefficient Variation 19.2 % (11.7-14.2); RDW Standard Deviation 57.4 fL (35.1-46.3); Red Blood Cell Count 3.14 M/mm3 (4.30-5.90); White Blood Cell Count 8.53 K/mm3 (4.00-11.30)
[2018-10-05 03:42] LABS: Anion Gap 5 mmol/L (6-16); Blood Urea Nitrogen 16 mg/dL (8-24); Bun/Creatinine Ratio 28.1 (12.0-20.0); CO2, Blood 27 mmol/L (21-32); Calcium, Blood 7.4 mg/dL (8.5-10.1); Chloride, Blood 114 mmol/L (98-108); Creatinine, Blood 0.57 mg/dL (0.60-1.20); Glomerular Filtration Rate >60 (60-); Glucose, Blood 82 mg/dL (70-99); Potassium, Blood 3.4 mmol/L (3.5-5.5); Sodium, Blood 146 mmol/L (136-145)
--- NOTE | 2018-10-05 05:29 | NUR ---
SHIFT SUMMARY: RESUMED PATIENT CARE AT 0200, PATIENT IS ALERT, NONVERBAL, REACT TO NONVERBAL STIMULI, CONTRUCTURE ON UPPER AND LOWER EXTREMITIES. O2 4 L NC, NSR - HEART RATE IN 70'S, REPOSITIONED EVERY HR, BED LOCKED, AND CALL LIGHT WITHIN REACH.
--- NOTE | 2018-10-05 09:42 | NUR ---
Assumed Care: Assumed care of pt at approx 0700. VSS. In no apparent sign of distress. Pt responds to verbal stimuli, but is non-verbal and has baseline hx of dementia. Pt moves about in bed. Does not follow directions. No s/sx of pain/discomfort at this time. Dr. Saleem at bedside this AM. ST leona who spoke to [facility] prior to assessing pt who states that pt is normally on a puree diet and is able to feed self. Pt is not able to safely do that at this time and is not swallowing food/drink. Currently NPO. Will remove silva per orders. See shift assessment for detailed assessment. Plan is to transfer to medical floor today if bed becomes available. Will continue to follow-up with ethics consult to determine long-termn plan of care for pt. Pt currently resting in bed with call light within reach. No apparent unmet needs at this time. Will continue to monitor.
--- NOTE | 2018-10-05 11:27 | NUR ---
pt stable seen yesterday for particiaption in ethics consult. Awaiting update form [facility] hosp[facility] on transtion back to his facility. Facility should be able to manage pt suctioning. Goal is back to his facility on hospice which is his home environment. Whith patients airway and poor swallow and risk for seizure. Same day admit needed. Pt risk for air chronic to severe air hunger and and airway stress that would best be managed by hospice medication regime and positioning, and familar environment.
--- NOTE | 2018-10-05 15:12 | NUR ---
Update/Transfer: Called report to Shima BACA. VSS. In no apparent sign of distress. No acute changes since initial shift assessment. Pt titrated down to 3L O2 NC shortly after shift assessment and has tolerated well. Spoke with RN from [facility] and plan is to possibly send pt back to [facility] on hospice. Milka Cortez RN is working on DC planning. Pt transferred at approx 1520 via bed with all belongings and chart. No apparent unmet needs at time of transfer.
--- NOTE | 2018-10-05 20:05 | NUR ---
SHIFT SUMMARY PATIENT ARRIVED TO UNIT AT 1355 FROM ICU 16. NONVERBAL. ON 3-4L O2 NC. VSS. RN AGREES WIT THE ASSESSMENT OF PER DIEM INTERPRETER. PATIENT DOES NOT APPEAR TO BE IN ANY PAIN. SATS >90%. SEIZURE PRECAUTIONS IN PLACE, SUCTION SET UP. NO ACUTE CHANGES THIS SHIFT. REPORT GIVEN TO [employer] RN.
--- NOTE | 2018-10-06 03:15 | NUR ---
Shift summary: Pt unresponsive and uncooperative with cares. Pt unable to follow commands. Pt will not let me listen to lungs unless someone holds his arms down. Pt lays in bed all night with his eyes wide open. Power glide right upper arm working ok but a challenge to get pt to let you do what you need to do. Pt has occasional weak moist cough that he is unable to get up. Pt will not let you suction him. Pt changed x 3 for urine incontinence last pm. It takes a 2 person assist to change him. pt is totally npo. Pt turned q 2 hours during night with very little cooperation.
[2018-10-06 06:01] LABS: BASOPHILS ABSOLUTE AUTO 0.06 K/mm3 (0.00-0.23); BASOPHILS PERCENT AUTO 1 % (0-2); EOSINOPHILS ABSOLUTE AUTO 0.08 K/mm3 (0.00-0.68); EOSINOPHILS PERCENT AUTO 1 % (0-6); Hematocrit 32.3 % (37.0-53.0); Hemoglobin 9.4 g/dL (13.5-17.5); IMMATURE GRAN ABSOLUTE AUTO 0.06 K/mm3 (0.00-0.10); IMMATURE GRAN PERCENT AUTO 1 % (0-1); LYMPHOCYTES ABSOLUTE AUTO 1.76 K/mm3 (0.84-5.20); LYMPHOCYTES PERCENT AUTO 17 % (21-46); MONOCYTES ABSOLUTE AUTO 0.85 K/mm3 (0.16-1.47); MONOCYTES PERCENT AUTO 8 % (4-13); Mean Corpuscular HGB 24.9 pg (26.0-34.0); Mean Corpuscular HGB Conc 29.1 g/dL (31.5-36.5); Mean Corpuscular Volume 85 fL (80-100); Mean Platelet Volume 11.7 fL (9.1-12.4); NEUTROPHILS ABSOLUTE AUTO 7.86 K/mm3 (1.96-9.15); NEUTROPHILS PERCENT AUTO 74 % (41-73); RDW Coefficient Variation 19.4 % (11.7-14.2); RDW Standard Deviation 60.4 fL (35.1-46.3); Red Blood Cell Count 3.78 M/mm3 (4.30-5.90); White Blood Cell Count 10.67 K/mm3 (4.00-11.30)
[2018-10-06 06:19] LABS: Anion Gap 10 mmol/L (6-16); Blood Urea Nitrogen 23 mg/dL (8-24); Bun/Creatinine Ratio 44.5 (12.0-20.0); CO2, Blood 24 mmol/L (21-32); Calcium, Blood 7.5 mg/dL (8.5-10.1); Chloride, Blood 113 mmol/L (98-108); Creatinine, Blood 0.52 mg/dL (0.60-1.20); Glomerular Filtration Rate >60 (60-); Glucose, Blood 75 mg/dL (70-99); Potassium, Blood 3.8 mmol/L (3.5-5.5); Sodium, Blood 147 mmol/L (136-145)
[2018-10-06 06:39] LABS: Platelet Count 138 K/mm3 (150-400)
--- NOTE | 2018-10-06 18:38 | NUR ---
SHIFT SUMMARY PATIENT NONVERBAL. DOES NOT FOLLOW ANY COMMANDS. 4.5 L O2 NC, SATS >90%. PATIENT REMOVES O2 AT TIMES. COUGHED UP SCANT AMOUNT OF BLOOD TINGED SPUTUM THIS SHIFT. DR. MONTES NOTIFIED. PATIENT WILL NOT ALLOW ANY SUCTIONING OR ORAL CARE. Q 2 REPOSITIONED THIS SHIFT. HOB ELEVATED TO 45. RESTED SOME THIS SHIFT. NS @ [address]ARM IN [address]. NO ACUTE CHANGES.
--- NOTE | 2018-10-07 05:22 | NUR ---
Shift summary: Pt has been quieterthis pm with less screaming. Respirations rapid and deep. Pt remains npo . Pt unable to follow commands and is nonverbal, but follows you around with his eyes. Uncooperative with cares and will not let us reposition him.
--- NOTE | 2018-10-07 14:58 | NUR ---
PATIENT NOT ALLOWING ANY ORAL CARE.
--- NOTE | 2018-10-07 19:24 | NUR ---
SHIFT SUMMARY PATIENT NONVERBAL. CONFUSED AND DOES NOT FOLLOW DIRECTIONS. RESTED ON AND OFF THROUGHOUT THE SHIFT. YELLS OUT AT TIMES. NPO. Q 2 HOUR REPOSITION. MEDICATED WITH TYLENOL 650 NE FOR TEMP 101.0 THIS SHIFT. NO OTHER ACUTE CHANGES. BED ALARM IN PLACE.
--- NOTE | 2018-10-07 22:26 | NUR ---
iV WENT BAD. unable to flush. conferred with charge nurse. IV meds on hold for now.
--- NOTE | 2018-10-08 00:09 | NUR ---
IV pulled out by patient. Dr De Luna called. Was told it was ok to hold iv and iv medications for now. Pt going to [facility] on hospice in am.
--- NOTE | 2018-10-08 04:43 | NUR ---
Shift summary: Pt remains nonverbal, and unable to follow commands. Pt will not let us turn him or put his oxygen back on. Pt had one incontinent wet attends last pm. Lost his iv last pm. Was oked by MD to leave it out and put hold on medications. No evidence of any seizure activity last pm. Pt screaming out less often and wet cough was minimal. D/c plan for him is to be discharged today to hospice care.
[2018-10-08] MEDS ORDERED: Feverall650 MG PR (11:17)
[2018-10-08] MEDS ORDERED: LORA2L PO (11:18)
[2018-10-08] MEDS ORDERED: MORP20L PO (11:19)
--- NOTE | 2018-10-08 12:28 | NUR ---
PATIENT DISCHARGE: PATIENT DISCHARGED/ HOME WITH HOSPICE ([place]) THIS SHIFT. MEDICATION RECONCILIATION COMPLETED; MED LIST FAXED TO [facility]. PATIENT DEPARTED MEDICAL FLOOR VIA [employer] [facility] AT 1200. PATIENT DEPARTED [facility] VIA [facility] [employer].
== END 2018-10-08 12:33 | DRG 870 ==
LOC: ER 21:58 → ICUE 23:51 → ICUW 23:51 → ICUE 09-30 01:16 → ICUW 10-05 02:35 → MEDS 10-05 15:51 → ENPENDDIS 10-08 10:01 → MEDS 10-08 12:33
PROVIDERS: Emergency Medicine; Hospitalist; Internal Medicine; Internal Medicine Critical Care Medicine; Internal Medicine Pulmonary Disease; Student in an Organized Health Care Education/Training Program; ADMIT Hospitalist
PROC: 30233N1 Transfusion of Nonautologous Red Blood Cells into Peripheral Vein, Percutaneous Approach (ICD-10-PCS; 2018-09-30)
PROC: 0BH17EZ Insertion of Endotracheal Airway into Trachea, Via Natural or Artificial Opening (ICD-10-PCS; 2018-09-30)
PROC: 5A1955Z Respiratory Ventilation, Greater than 96 Consecutive Hours (ICD-10-PCS; 2018-09-30)
PROC: 0W3P8ZZ Control Bleeding in Gastrointestinal Tract, Via Natural or Artificial Opening Endoscopic (ICD-10-PCS; principal; 2018-09-30 13:45)
DX: A41.9 Sepsis, unspecified organism (principal); K25.4 Chronic or unspecified gastric ulcer with hemorrhage; R57.8 Other shock; R65.21 Severe sepsis with septic shock; G92 Toxic encephalopathy; J18.9 Pneumonia, unspecified organism; J69.0 Pneumonitis due to inhalation of food and vomit; E87.0 Hyperosmolality and hypernatremia; Z51.5 Encounter for palliative care; R56.9 Unspecified convulsions; D64.9 Anemia, unspecified; F32.9 Major depressive disorder, single episode, unspecified; F03.90 Unspecified dementia, unspecified severity, without behavioral disturbance, psychotic disturbance, mood disturbance, and anxiety; Z87.820 Personal history of traumatic brain injury; Z66 Do not resuscitate
CPT/HCPCS: 31500; 31720; 36415; 36430; 36600; 51702; 71045; 80048; 80053; 80202; 81001; 82272; 82330; 82607; 82746; 82803; 82947; 83605; 83690; 83735; 83880; 84100; 84295; 84484; 85007; 85014; 85018; 85025; 85027; 85610; 85730; 86850; 86900; 86901; 86923; 87040; 87070; 87205; 92610; 93005; 93010; 94002; 94003; 94667; 94668; 96361-59; 96365-59; 96375-59; 99291-25; 99292; C9113; J0610; J1953; J1956; J2250; J2543; J2704; J2765; J3010; J3370; J3480; J7030; J7040; J7050; J7070; J7120; P9016